=== PATIENT | male | born 1945 | race Caucasian/White ===

== ENCOUNTER 2020-06-17 23:23 | Emergency (ER) | payer BC ==
[~2020-06-17] VITALS: Ht 182.9 cm; Wt 116.1 kg
[2020-06-17] MEDS ORDERED: DIPHEN25 MG PO (23:32)
[2020-06-17] MEDS ORDERED: ACID CONTROLLER20 MG PO (23:33)
[2020-06-17] MEDS ORDERED: CRESTOR20 MG PO (23:33)
[2020-06-17] MEDS ORDERED: CHILDREN'S ASPI81 M1 PO (23:34)
[2020-06-18 03:10] VITALS: BP 112/71
== END 2020-06-18 00:30 | disposition home or self-care (01) ==
LOC: ER 23:23
DX: R50.9 Fever, unspecified (principal); Z20.828 Contact with and (suspected) exposure to other viral communicable diseases; E78.00 Pure hypercholesterolemia, unspecified; Z91.030 Bee allergy status; Z79.82 Long term (current) use of aspirin; Z79.899 Other long term (current) drug therapy